=== PATIENT | female | born 1980 | race Caucasian/White ===

== ENCOUNTER 2021-02-21 18:17 | Emergency (ER) | payer SELFPAY ==
[2021-02-21 18:46] LABS: Bilirubin Negative (Negative); Blood, Urine Negative (Negative); Glucose, Urine (Dipstick) Negative (Negative); Ketone, Urine Negative (Negative); Leukocyte Trace (Negative); Nitrite Positive (Negative); Protein, Urine (Dipstick) Negative (Neg-Trace); Urobilinogen 0.2 mg/dL (Less than 2)
[2021-02-21 18:49] LABS: Clarity Clear (Clear); Specific Gravity, Urine 1.029 (1.002-1.036)
[2021-02-21 18:50] LABS: Bacteria/HPF 2+ HPF (None Seen); Calcium Oxalate Crystals Rare HPF (None Seen); Pregnancy Test - Urine (BHCG) Negative (Negative); Pregu Control Bar Appear? YES (CONTROL BAR); Specific Gravity 1.029 (1.002-1.036); Squamous Epithelial 21-50 HPF (0-3); WBC/HPF 21-50 HPF (0-3)
[2021-02-21 18:51] LABS: Pregu Control Background? CLEAR/WHITE (CLR/WHITE)
[2021-02-21] MEDS ORDERED: cefTRIAXone\\ROCEPHIN 1 GM VIAL ONE (22:25)
== END 2021-02-21 22:41 | disposition home or self-care (01) ==
LOC: ERS 18:17
DX: B37.3 Candidiasis of vulva and vagina (principal); A64 Unspecified sexually transmitted disease
CPT/HCPCS: 81003; 81015; 81025; 96372; 99284; J0696